=== PATIENT | male | born 1980 | race African-American/Black ===

== ENCOUNTER 2023-11-03 07:35 | Emergency (ER) | payer BC ==
[2023-11-03 07:58] VITALS: TEMP 97.8; BMI 33.7
[2023-11-03] MEDS ORDERED: DEXAMETHASONE SOD PHOSPHATE 10 MG/1 ML VIAL IM ONE (08:58)
[2023-11-03] MEDS ORDERED: ALBUTEROL SO4 2.5/IPRATROPIUM 0.5 INH SOL 3 ML VIAL.NEB. NEB ONE ×2 (08:58→09:00)
[2023-11-03] MEDS ORDERED: ACETAMINOPHEN 500 MG TABLET (FP) PO ONE (08:58)
[2023-11-03] MEDS ORDERED: FLUTICASONE PROP 0.05% 16 GM NASAL SPRAY NS ONE (08:59)
[2023-11-03] MEDS ORDERED: DEXAMETHASONE SOD PHOSPHATE 10 MG/1 ML VIAL ONE (09:00)
[2023-11-03] MEDS ORDERED: ACETAMINOPHEN 500 MG TABLET (FP) ONE (09:00)
[2023-11-03] MEDS ORDERED: SODIUM CHLORIDE 1,000 ML IV STA (09:01)
[2023-11-03] MEDS ORDERED: ASPIRIN 81 MG CHEWABLE TABLETS PO ONE (09:12)
[2023-11-03] MEDS ORDERED: DEXAMETHASONE SOD PHOSPHATE 10 MG/1 ML VIAL IVPUSH ONE (09:21)
[2023-11-03] MEDS ORDERED: ASPIRIN 81 MG CHEWABLE TABLETS ONE (09:21)
[2023-11-03 09:43] LABS: BASO % 0.4 % (0-2.0); EOS % 1.4 % (0-4.5); HEMATOCRIT 42.6 % (35.4-49); LYMPH % 14.1 % (8-40); MCH 27.7 pg (25.7-33.7); MCHC 32.9 g/dl (32.0-35.9); MEAN CELL VOLUME 84.3 fl (80-96); MONO % 4.9 % (3.8-10.2); NEUT % 79.2 % (42.8-82.8); PLATELET COUNT 315 10^3/uL (134-434); RBC 5.05 M/mm3 (4.00-5.60); RDW 13.7 % (11.9-15.9); WHITE BLOOD COUNT 15.8 K/mm3 (4.0-10.0)
[2023-11-03 09:45] LABS: INR 1.03 (0.83-1.09)
[2023-11-03 09:47] LABS: PH,URINE 6.5 (5.0-8.0); URINE APPEARANCE CLEAR; URINE BILIRUBIN NEGATIVE (NEGATIVE); URINE COLOR YELLOW; URINE GLUCOSE (UA) NEGATIVE (NEGATIVE); URINE KETONE NEGATIVE (NEGATIVE); URINE LEUK ESTERASE NEGATIVE (NEGATIVE); URINE NITRITE NEGATIVE (NEGATIVE); URINE PROTEIN TRACE (NEGATIVE)
[2023-11-03 09:48] LABS: ACTIVATED PTT 33.5 SECONDS (25.2-36.5)
[2023-11-03 09:52] LABS: POTASSIUM 4.6 mmol/L (3.5-5.1)
[2023-11-03 09:54] LABS: ALBUMIN 3.9 g/dl (3.4-5.0); BLOOD UREA NITROGEN 8.3 mg/dL (7-18); CALCIUM 8.7 mg/dL (8.5-10.1)
[2023-11-03 09:55] LABS: MAGNESIUM 2.3 mg/dL (1.8-2.4)
[2023-11-03 09:59] LABS: BILIRUBIN,TOTAL 0.4 mg/dL (0.2-1); TOT PROT 7.7 g/dl (6.4-8.2)
[2023-11-03 13:03] VITALS: BP 161/80; PULSE 95; RESP 16
[2023-11-03] MEDS ORDERED: AMOX TR/POT CLAV 875MG/125MG TABLETS (FP) PO ONE (13:19)
[2023-11-03] MEDS ORDERED: AZITHROMYCIN 500 MG TABLET PO ONE (13:21)
[2023-11-03] MEDS ORDERED: AMOX TR/POT CLAV 875MG/125MG TABLETS (FP) ONE (13:24)
[2023-11-03] MEDS ORDERED: AZITHROMYCIN 500 MG TABLET ONE (13:24)
== END 2023-11-03 13:53 | disposition home or self-care (01) ==
LOC: JER 07:35
PROC: 3E033GC Introduction of Other Therapeutic Substance into Peripheral Vein, Percutaneous Approach (ICD-10-PCS; principal; 2023-11-03)
PROC: 3E0337Z Introduction of Electrolytic and Water Balance Substance into Peripheral Vein, Percutaneous Approach (ICD-10-PCS; 2023-11-03)
PROC: 3E0F7GC Introduction of Other Therapeutic Substance into Respiratory Tract, Via Natural or Artificial Opening (ICD-10-PCS; 2023-11-03)
DX: R09.81 Nasal congestion (principal); R07.89 Other chest pain; R05.9 Cough, unspecified; R61 Generalized hyperhidrosis; J01.80 Other acute sinusitis; Z20.822 Contact with and (suspected) exposure to COVID-19
CPT/HCPCS: 0241U-QW; 36415; 71046-TC-FY; 71250-TC; 80053; 81003; 83690; 83735; 84484; 85025; 85610; 85730; 93005; 93010; 99285-25; J1100